=== PATIENT | male | born 1965 | race African-American/Black ===

== ENCOUNTER 2019-02-19 21:47 | Emergency (ER) | payer SELFPAY ==
[~2019-02-19] VITALS: Ht 185.4 cm; Wt 117.9 kg
[2019-02-19 21:54] VITALS: Ht 185.4 cm; Wt 117.9 kg
[2019-02-19 23:13] VITALS: BP 133/69
== END 2019-02-19 23:13 | disposition home or self-care (01) ==
LOC: ED 21:47
DX: A60.01 Herpesviral infection of penis (principal); F17.200 Nicotine dependence, unspecified, uncomplicated
CPT/HCPCS: 87491; 87591; 99406; J0696

== ENCOUNTER 2019-08-22 10:28 | Emergency (ER) | payer MEDICAID ==
[~2019-08-22] VITALS: Ht 185.4 cm; Wt 118.4 kg
[2019-08-22 10:35] VITALS: Ht 185.4 cm; Wt 118.4 kg
[2019-08-22 11:55] LABS: CALCIUM 9.1 mg/dL (8.5-10.1); CARBON DIOXIDE 27.1 mmol/L (21-32); CHLORIDE SERUM 104 mmol/L (98-107); CREATININE SERUM 1.1 mg/dL (0.7-1.3); GFR1 > 60 mL/min; GLUCOSE SERUM 97 mg/dL (74-106); POTASSIUM SERUM 4.6 mmol/L (3.5-5.1); SODIUM SERUM 139 mmol/L (136-145)
[2019-08-22 11:59] LABS: ALBUMIN 3.8 g/dL (3.4-5.0); ALKALINE PHOSPHATASE 48 U/L (46-116); ALT/SGPT 21 U/L (16-63); AST/SGOT 21 U/L (15-37); BILIRUBIN TOTAL 0.7 mg/dL (0.20-1.00); LIPASE 79 IU/L (73-393); PLATELET COUNT 351 x10^3mcL (130-400)
[2019-08-22 12:03] LABS: RED CELL DISTRIBUTION WIDTH 15.1 % (11.5-14.5)
[2019-08-22 12:27] LABS: BAND NEUTROPHIL 0 % (0-10); BASOPHIL 0 % (0-2); MONOCYTE 12 % (0-7); PLATELET MORPHOLOGY PLATELETS INCREASED; SEGMENTED NEUTROPHILS 73 % (37-75)
[2019-08-22 12:28] LABS: rbc morphology (normal/abnorm) ABNORMAL (NORMAL)
[2019-08-22 14:40] VITALS: BP 142/71
== END 2019-08-22 14:40 | disposition home or self-care (01) ==
LOC: ED 10:28
PROVIDERS: Emergency Medicine
DX: R10.10 Upper abdominal pain, unspecified (principal); F11.20 Opioid dependence, uncomplicated; F17.210 Nicotine dependence, cigarettes, uncomplicated; Z71.6 Tobacco abuse counseling
CPT/HCPCS: 36415; 99406; Q9967

== ENCOUNTER 2019-12-07 11:06 | Emergency (ER) | payer MEDICAID ==
[~2019-12-07] VITALS: Ht 185.4 cm; Wt 117.5 kg
[2019-12-07 11:13] VITALS: Ht 185.4 cm; Wt 117.5 kg
[2019-12-07 14:08] VITALS: BP 179/74
== END 2019-12-07 14:08 | disposition home or self-care (01) ==
LOC: ED 11:06
DX: M54.5 Low back pain (principal)
CPT/HCPCS: J1885

== ENCOUNTER 2019-12-14 11:45 | Emergency (ER) | payer MEDICAID ==
[~2019-12-14] VITALS: Ht 185.4 cm; Wt 120.2 kg
[2019-12-14 11:55] VITALS: Ht 185.4 cm; Wt 120.2 kg
[2019-12-14 12:25] VITALS: BP 157/80
== END 2019-12-14 13:00 | disposition home or self-care (01) ==
LOC: ED 11:45
DX: M54.5 Low back pain (principal); R05 Cough